=== PATIENT | female | born 1960 | race Caucasian/White ===

== ENCOUNTER 2017-07-07 10:52 | Observation (INO) | payer OTHER ==
--- NOTE | 2017-07-07 10:59 | EDPHY ---
H & P HPI/ROS: CHIEF COMPLAINT: Chest pain HISTORY OF PRESENT ILLNESS: The patient is a 56 y/o female arriving with her for evaluation of chest pain that woke her from sleep last night. She has several autoimmune diseases including lupus and dermatomyositis that cause baseline pain and fatigue and can cause difficulty for her to determine which symptoms are acute. Several years ago she had persistent chest pain that was diagnosed as pericarditis and ultimately resolved. For the last few months she' s experienced intermittent lower chest pain that she has not had evaluated. Prior to sleeping last night she developed sharp right upper arm and neck pain and dizziness that she attributed to heart burn. Through the night she developed cold profuse sweating that woke her . Later during the night she woke suddenly with acute substernal and right-sided chest pain. She took 3 aspirin and 3 ibuprofen with mild improvement. Her pain is aggravated by palpation and deep breathing. She has some associated shallow breathing today that seems worse when lying flat and notes more difficulty keeping up on her hikes in the last 2 weeks. She denies history of hypertension, hyperlipidemia, and diabetes. In the past she has taken biologics and steroids for her autoimmune disorders. She has had problems with these medications and is not interested in using them again. REVIEW OF SYSTEMS: A ten point review of systems was performed and is negative with the exception of the items mentioned in the HPI and intermittent difficulty swallowing. Past medical history: 1. Dermatomyositis 2. Lupus 3. Possible rheumatoid arthritis - previously on biologics Uses Adderall, tramadol, and NSAIDs. Recent MRI showed thickening of her pancreas. Past surgical history: Denies. Family history: Heart disease in father onset age 65 Social history: PCP at [facility]. 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 She occasionally smokes cigarettes. No alcohol or illicit drug use. 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 at bedside. General Appearance: Alert. Vital signs reviewed. 136/92. Eyes: Pupils equal and round, no conjunctival injection, no discharge. Anicteric. ENT, Mouth: Mucous membranes are moist, no oropharyngeal erythema or edema. Neck: No lymphadenopathy, supple. Respiratory: Lungs are clear to auscultation; no wheezes, rales, or rhonchi. Thorax: Mild tenderness with palpation of the lower sternum and medial right lower ribcage. No crepitus. Cardiovascular: Regular rate and rhythm; no murmur, rub, or gallop. Gastrointestinal: Abdomen is soft and nontender, no masses or organomegaly, bowel sounds normal. Skin: Warm and dry, no rashes on exposed skin, normal color. No joint deformities, warmth, swelling, or tenderness. Back: Nontender to palpation over the thoracolumbar spine. No CVAT. Extremities: No lower extremity edema, no calf tenderness or swelling. Neurological: Alert and oriented. Moving all four extremities easily and equally. Psychiatric: Normal affect. Constitutional: Initial Vital Signs Temperature (C) 37.1 C 07/07/17 11:04 Heart Rate 66 07/07/17 11:04 Respiratory Rate 18 07/07/17 11:04 Blood Pressure 136/92 H 07/07/17 11:04 O2 Sat (%) 96 07/07/17 11:04 O2 Delivery Mode Room Air Allergies/Adverse Reactions: ciprofloxacin [From Cipro] Allergy (Verified 07/07/17 11:08) Home Medications: Medication Instructions Recorded Amphet Asp and D/Amphet [Adderall 10 - 20 mg PO DAILY PRN 07/07/17 10 MG (*)] Ascorbic Acid [Vitamin C 500 mg 1,000 mg PO DAILY 07/07/17 (*)] Cholecalciferol Vit D3 [Vitamin D3 5,000 units PO DAILY 07/07/17 (*)] Herbals/Supplements -Info Only 1 ea PO DAILY 07/07/17 Ibuprofen [Motrin (*)] 200 - 1,200 mg PO DAILY PRN 07/07/17 Lefors-3 Fatty Acids [Fish Oil 1000 6,000 mg PO DAILY 07/07/17 mg (*)] traMADol [Ultram 50 mg (*)] 50 mg PO DAILY PRN 07/07/17 Medical Decision Making - Diagnostics EKG Interpretation: 12 lead EKG is interpreted in Trace master View by emergency department physician. Sinus rhythm with a rate of 67. There is slight ST depression in leads V4, V5, and V6. Imaging: I viewed and interpreted images myself ED Course/Re-evaluation: IV established. Labs drawn. Patient placed on security monitor and chest x-ray ordered. She has taken aspirin already today. The 12 lead EKG was interpreted by myself. Sinus rhythm rate [address] depression in leads V4 through V6.. See hard copy and/or "tracemaster" electronic copy for interpretation. Reassessed patient. Labs, EKG, and chest x-ray are negative for acute process. I reviewed these findings with the patient and her . She continues with some lower substernal and right lower just pain. This is likely atypical chest pain. However, she has had an episode of pericarditis in the past. I do not find evidence of pericarditis on my physical examination or on the EKG. I doubt that this is an acute coronary syndrome but there are some concerning features, including her recent shortness of breath with vigorous exercise. In this patient with lupus I think that the prudent approach is to admit her to the hospital for serial troponins and further evaluation as warranted. 1353: Spoke with hospitalist service. Dr. Montoya accepts admission. Differential Diagnosis: Chest pain including but not limited to myocardial ischemia, pericarditis, pulmonary embolus, chest wall pain, pleural inflammation and pulmonary infectious causes. - Data Points Laboratory Results: Laboratory Results 07/07/17 11:12 07/07/17 11:12 Medications Given: Melatonin (Melatonin) 4.5 - 9 mg PO HS PRN PRN Reason: Sleep/Insomnia Stop: 01/03/18 20:59 Last Admin: 07/07/17 21:33 Dose: 6 mg Tramadol HCl (Ultram) 50 mg PO DAILY PRN PRN Reason: Pain, Moderate Stop: 01/03/18 16:41 Last Admin: 07/08/17 00:30 Dose: 50 mg Departure - Departure Disposition: [facility] Acute Clinical Impression: Chest pain Qualifiers: Chest pain type: other chest pain Qualified Code(s): R07.89 - Other chest pain Lupus Qualifiers: Lupus erythematosus form: unspecified Qualified Code(s): L93.0 - Discoid lupus erythematosus Condition: Fair Report Scribed for: Nirmala Jones Report Scribed by: Odilia Engel Date of Report: 07/07/17 Time of Report: 11:49 Physician Review and Approval Statement: 07/07/17 10:59 Portions of this note were transcribed by the manager medical. I, Dr. Nirmala Jones, personally performed the history, physical exam, and medical decision- making; and confirmed the accuracy of the information in the transcribed note.
--- NOTE | 2017-07-07 11:05 | CPEKG ---
Heart Rate: 67 RR Interval: 896 P-R Interval: 152 QRSD Interval: 88 QT Interval: 408 QTC Interval: 431 P [place]: 66 QRS [place]: -21 T Wave [place]: 45 EKG Severity - OTHERWISE NORMAL ECG - EKG Impression: SINUS RHYTHM EKG Impression: BORDERLINE LEFT AXIS DEVIATION EKG Impression: Slight ST depression V4, V5, V6 Electronically Signed By: Nirmala Jones 08-Jul-2017 09:26:08
[2017-07-07 11:47] LABS: % IMMATURE GRANULYOCYTES 0.2 % (0.0-1.1); ABSOLUTE IMMATURE GRANULOCYTES 0.01 10^3/uL (0.00-0.10); ADD DIFF? NO; ADD MORPH? NO; ADD SCAN? NO; ATYPICAL LYMPHOCYTE FLAG 10 (0-99); FRAGMENT RBC FLAG 0 (0-99); HEMATOCRIT 39.2 % (38.0-47.0); HEMOGLOBIN 13.7 g/dL (12.6-16.3); LEFT SHIFT FLG 0 (0-99); LIPEMIA HEMOLYSIS FLAG 90 (0-99); MEAN CELL HEMOGLOBIN 31.9 pg (27.9-34.1); MEAN CELL HEMOGLOBIN CONCENTR. 34.9 g/dL (32.4-36.7); MEAN CELL VOLUME 91.2 fL (81.5-99.8); MEAN PLATELET VOLUME 10.7 fL (8.7-11.7); PLATELET CLUMPS FLAG 0 (0-99); PLATELET COUNT 230 10^3/uL (150-400); RED CELL DISTRIBUTION WIDTH 11.6 % (11.5-15.2)
[2017-07-07 11:52] LABS: ANION GAP 10 mEq/L (8-16); CALCIUM 9.7 mg/dL (8.5-10.4); CARBON DIOXIDE 23 mEq/l (22-31); CHLORIDE 108 mEq/L (97-110); CREATININE 0.7 mg/dL (0.6-1.0); GLOMERULAR FILTRATION RATE > 60; GLUCOSE 87 mg/dL (70-100); POTASSIUM 4.1 mEq/L (3.5-5.2); SODIUM 141 mEq/L (134-144)
[2017-07-07 12:04] LABS: TROPONIN I < 0.012 ng/mL (0.000-0.034)
[2017-07-07] MEDS ORDERED: ONDANSETRON 4 MG/2 ML VIAL IVP PRN (15:07)
[2017-07-07] MEDS ORDERED: ONDANSETRON DISINTEGRATING 4 MG TAB PO PRN (15:07)
[2017-07-07] MEDS ORDERED: ACETAMINOPHEN 325 MG TAB PO PRN (15:07)
--- NOTE | 2017-07-07 16:18 | CPEKG ---
Heart Rate: 58 RR Interval: 1034 P-R Interval: 160 QRSD Interval: 96 QT Interval: 456 QTC Interval: 448 P [place]: 53 QRS [place]: -14 T Wave [place]: 46 EKG Severity - NORMAL ECG - EKG Impression: SINUS RHYTHM Electronically Signed By: Yunior Weinstein 08-Jul-2017 17:17:28
[2017-07-07] MEDS ORDERED: ADDERALL 10 MG TAB PO PRN (16:42)
[2017-07-07] MEDS: traMADol 50 MG TAB PO PRN (17:03)
--- NOTE | 2017-07-07 17:35 | GHP ---
[f rep st] HISTORY AND PHYSICAL DATE OF ADMISSION: 07/07/2017 CHIEF COMPLAINT: Chest pressure. HISTORY OF PRESENT ILLNESS: A 56-year-old female with history of lupus, RA, dermatomyositis, presenting with chest pressure that awoke her from sleep last night. She had pressure in her left chest, squeezing in nature, and pain on her right side that was tender when she touched it. Along with this, she had sweats, nausea, shortness of breath. The pain radiated to her right arm, neck, and the middle of her back. She did not have any tingling or numbness in her limbs. She took 3 aspirin and some ibuprofen, along with some CBD oil; that improved the tender right-sided pain, but the left-sided pressure remained. She was able to doze off and awoke this morning about 6 a.m. with recurrent pain that was a little bit more dull in nature. She has had a recent sinus infection. She says she has had a cough earlier this week with some green sputum. No fevers or chills. Last night, she did notice increased belching. She hikes [employer] 4-5 days a week, does experience some shortness of breath and intermittent chest pain, but she could not quantify or qualify that chest pain. Along with that, she sometimes has nausea. She says it is difficult to discern symptoms with her underlying rheumatologic diseases. She was traveling in [place] for the past 2 days for work. She also has had difficulty swallowing this last week, which is intermittent for her. She has had some pain in her hips and arms. Patient says she had a treadmill stress over 10 years ago that was borderline, but no further evaluation. REVIEW OF SYSTEMS: I completed a 10-point review of systems, negative except as noted in HPI. PAST MEDICAL HISTORY: Lupus, dermatomyositis, rheumatoid arthritis, has previously been on steroids, Rituxan, and minocycline for these issues. PAST SURGICAL: 4 knee arthroscopic surgeries. SOCIAL HISTORY: She lives in [place] with her . 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 She is a social smoker. No alcohol or illicits. FAMILY HISTORY: Father had 4 heart attacks, at 70, 80, 84, and then later. A paternal aunt with 3 heart attacks and a stroke. A sister with atrial fibrillation. ALLERGIES: Actemra. Cipro. HOME MEDICATIONS: [place]-3 herbal supplement. Vitamin D3. Vitamin C. Ibuprofen as needed. Adderall. Tramadol. PHYSICAL EXAMINATION: VITAL SIGNS: Temperature 37.1. Blood pressure is 133/ 83. Heart rate 50s, 60s. Respirations 16. 98% on room air. GENERAL: Well- appearing female, lying in bed in no acute distress. HEENT: PERRLA. EOMI. Oropharynx clear. CV: Regular rate and rhythm. No murmurs, gallops, or rubs. No lower extremity edema. LUNGS: Clear. No crackles or wheezing. ABDOMEN: Soft, nontender, nondistended. Positive bowel sounds. : No suprapubic tenderness. MUSCULOSKELETAL: 5/5 upper and lower extremity strength. Positive synovitis over PIP joints, MCP joints, and ankles. NEURO: 2 through 12 intact. PSYCH: Alert and oriented x3 next. LABORATORIES: WBC is 5. Hemoglobin is 13. Hematocrit is 39. Platelets 230. Sodium 141, potassium 4.1, chloride 106, creatinine 0.7, glucose 87. Troponin less than 0.012. X-ray, personally reviewed by me: No opacity or effusion. EKG, personally reviewed by me: ST depression in leads 5 and 6. No olds to compare. ASSESSMENT AND PLAN: 1. Atypical chest pain: Differential includes acute coronary syndrome, pulmonary embolism,lupus flare , GERD, vs musculoskeletal. She does have risk factors including lupus and family history. There is mild ST depression, anterior leads. Troponin is negative. Add D-dimer with recent travel. Another consideration would be pericarditis, with recent upper respiratory infection. Repeat troponin, EKG. Monitor on telemetry. Order Lexiscan test for in the morning. 2. Lupus/dermatomyositis and rheumatoid arthritis: She is not on any biologics or steroids at this time. She will follow up with her PCP. 3. Shortness of breath: This may be an anginal equivalent or secondary to her underlying rheumatologic diseases. No evidence of edema. I will check a BNP. 4. Diet: Regular. 5. Deep venous thrombosis prophylaxis: Lovenox. 6. Disposition: Patient warrants observation admission given atypical chest pain, warranting serial troponin and cardiac stress test. /[id number]/MODL MTDD
[2017-07-07] MEDS ORDERED: MELATONIN 3 MG TAB PO PRN (21:00)
[2017-07-08] MEDS: traMADol 50 MG TAB PO PRN ×2 (00:30→13:26)
[2017-07-08 04:28] LABS: CHOLESTEROL 142 mg/dL (140-220); CHOLESTEROL/HDL RATIO 3.55 RATIO (1.00-4.44); HIGH DENSITY LIPOPROTEIN 40 mg/dL (40-85); LDL/HDL RATIO 2.18 RATIO (1.00-3.22); LOW DENSITY LIPOPROTEIN 87 mg/dL (80-100); NON-HIGH DENSITY LIPOPROTEIN 102 mg/dL (90-129); TRIGLYCERIDE 75 mg/dL (35-135); VERY LOW DENSITY LIPOPROTEINS 15 mg/dL (8-25)
[2017-07-08 07:56] VITALS: O2SAT 98
[2017-07-08] MEDS ORDERED: CHOLECALCIFEROL VIT D3 2,000 UNITS TAB/CAP PO SCH (09:00)
[2017-07-08] MEDS ORDERED: ASCORBIC ACID 500 MG TAB PO SCH (09:00)
[2017-07-08] MEDS ORDERED: OMEGA-3 FATTY ACIDS 1,000 MG CAP PO SCH (09:00)
[2017-07-08] MEDS ORDERED: ENOXAPARIN 40 MG/0.4 ML SYR SC SCH (09:00)
[2017-07-08] MEDS ORDERED: Herbals/Supplements -Info Only PO SCH (09:00)
--- NOTE | 2017-07-08 09:41 | ASMTCASEMG ---
Discharge Plan Comments Coordination Status Comments Notes: Reviewed chart, no case managment d/c needs identified at this time d/t patient age, lack of OT and PT therapy assessements ordered and pt being an avid hiker prior to admission. D/C plan independent with follow up as ordered by MD. Case Management available if needs change. Date Signed: 07/08/2017 09:41 AM Electronically Signed By:Porsche Grace
[2017-07-08 11:36] VITALS: BP 113/71; PULSE 72; RESP 16; TEMP 97.5
--- NOTE | 2017-07-08 16:47 | PDDCSUM ---
Discharge Summary Discharge Summary: DISCHARGE DIAGNOSES: -chest pain, resolved, uncertain etiology -ruled out for myocardial infarction HOSPITAL COURSE: This patient came to hospital complaining of chest pain which occurred in 2 episodes over the preceding couple of days. This is describes pressure in the upper chest with radiation into the shoulder and arm. There is some nausea. She ruled out for myocardial infarction, had no evidence of hemodynamic abnormalities, had no arrhythmia on cardiac monitoring. Cardiac enzymes and EKGs were normal. She was up in able to ambulate in the hallway without any symptoms instigated by that. There is no sign of infection, heart failure, pericarditis, and nothing to suggest PE. She went to [facility] stress test with myocardial perfusion imaging. This was normal in all respects with the just short of 12 mets of exercise, no specific abnormalities of vital signs, recovery time, a EKG changes, or imaging results. The patient is felt to be at very low risk of myocardial infarction or other important cardiac event. She is warned however the possibility of false negative test results and that if she does have any ongoing chest discomfort she should is seek ongoing evaluation to find a cause for this and treatment. MEDICATION CHANGES: None FOLLOW-UP PLAN: She knows to seek urgent care for any other concerning chest pain or other concerning symptoms. She does not have a primary care physician I did give her the name of several doctors in the community he may be able to help look after her ongoing autoimmune illness.
--- NOTE | 2017-07-08 18:38 | CPR ---
[f rep st] NONINVASIVE CARDIAC PROCEDURE REPORT PROCEDURE: Stress EKG INDICATION: Chest pain. DESCRIPTION OF PROCEDURE: The modified Simon protocol was used. The patient was prepared, and she ran on the treadmill for a total of 11 minute and 41 seconds. The heart rate went up to 144 beats per minute, which was 90% of the predicted max heart rate for age and gender, indicating an excellent exercise capacity. Upsloping ST change of 0.5 mm. Stanton treadmill score of 9 CONCLUSION: Normal treadmill EKG. Await myocardial perfusion results. /[id number]/MODL MTDD
--- NOTE | 2017-07-09 09:33 | ASDISCHSUM ---
Discharge Information Plan Status:Home with No Needs Medically Cleared to Leave: Discharge Date:07/08/2017 03:41 PM CM D/C Disposition: ADT D/C Disposition:Home, Routine, Self-Care Projected Discharge Date:07/08/2017 03:41 PM Transportation at D/C:Family Discharge Delay Reason: Follow-Up Date:07/08/2017 03:41 PM Discharge Slot: Final Diagnosis: Placement Information Patient Contact Information Contact Name:BECKY Relationship: Address:[address] [place] Work Phone: [place] Phone: State/Zip Code:[place] [address] Email: Financial Information Financial Class:Lucio WISHI Primary Plan Desc:LUCIO [employer]MO OPEN ACC LOCAL Primary Plan Number:[id number] Secondary Plan Desc: Secondary Plan Number: Assessment Information [facility] Initial CM Assessment Discharge Plan Comments Coordination Status Comments Notes: Reviewed chart, no case managment d/c needs identified at this time d/t patient age, lack of OT and PT therapy assessements ordered and pt being an avid hiker prior to admission. D/C plan independent with follow up as ordered by MD. Case Management available if needs change. Date Signed: 07/08/2017 09:41 AM Electronically Signed By:Porsche Grace Intervention Information
== END 2017-07-08 15:41 | disposition home or self-care (01) ==
LOC: F2W 14:55
PROVIDERS: ADMIT Internal Medicine; ATTEND Internal Medicine
DX: R07.9 Chest pain, unspecified (principal); M32.9 Systemic lupus erythematosus, unspecified; M33.92 Dermatopolymyositis, unspecified with myopathy
CPT/HCPCS: 71020; 78451; 93005; 93017; 99285; A9500; G0378; J1650

== ENCOUNTER 2017-10-14 16:19 | Inpatient (IN) | payer OTHER ==
[2017-10-14] MEDS ORDERED: HYDROmorphONE/DILAUDID 1 MG/ML INJ IVP ONE ×2 (16:30→17:28)
[2017-10-14] MEDS ORDERED: NS 1,000 ML IV ONE (16:30)
[2017-10-14] MEDS ORDERED: ceFAZolin 2 GM/DEXTROSE 100 ML IV ONE (16:39)
--- NOTE | 2017-10-14 16:39 | EDPHY ---
General - History Smoking Status: Never smoked Narrative: CHIEF COMPLAINT: Fall, elbow injury HISTORY OF PRESENT ILLNESS: Patient was walking her dog when 1 of them moved suddenly causing her to fall. She sustained injury to the left elbow. She says she heard a pop of the bone, felt a grinding sensation of the bone the elbow and sustained a laceration. Complains of some pain that radiates into the hand and left shoulder. Some tingling. No numbness. Some superficial injury to the right knee. No head strike or loss of conscious. No chest or back pain. No headache or neck pain. No abdominal pain. No pain in the right upper extremity. The pain left elbow was severe. It is constant. No improvement with rest. Significantly painful during her drive to the hospital. No other associated complaints or modifying factors. ESTABLISHED ORTHOPEDIST: None REVIEW OF SYSTEMS: Ten systems reviewed and are negative unless otherwise noted in the HPI PAST MEDICAL HISTORY: Lupus, rheumatoid arthritis, dermatomyositis PAST SURGICAL HISTORY: Remotely SOCIAL HISTORY: Occasional smoker. Occasional alcohol. 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 Pupils equal round reactive. EOMs intact. Neck: Supple nontender. No crepitus, step-off deformity. No bony tenderness. No meningismus. Cardiovascular: Symmetric radial pulses 2+. Brisk cap refill Neurological: A&O, sensation to the back of the hand, palm of the hand involving the thumb, index and middle fingers symmetric. No wrist drop on the left upper extremity. Decreased sensation in the left ring and little finger. Skin: Warm and dry, no rash. Complex laceration of the left posterior elbow, 6 cm total length in jagged. Extremities: Significant tenderness of left elbow. Range of motion not tested due to complex laceration with suspected open fracture. No tenderness of the left shoulder joint. No tenderness of the left snuffbox or hand. Psychiatric: Mood and affect normal DIFFERENTIAL DIAGNOSES: Including but not limited to compound fracture, open fracture, complex laceration, elbow fracture, sprain, strain MDM: 4:30 p.m. Mechanical fall with suspected open fracture left elbow. There is some decreased sensation to the left ring and pinky finger in the ulnar distribution. Unable to fully examine the patient this time due to pain. X-ray has been ordered. IV access being obtained. Pain medication ordered. 4:55 p.m. Case discussed with on-call orthopedist Dr. Ahumada. He will come evaluate the patient in the emergency department shortly. 5:00 p.m. Patient has been evaluated personally by Dr. Cedeño. 5:[address] Ahumada is at bedside with the patient. He has reviewed the x-rays. 5:[address] Ahumada has evaluated the patient. He requests IV gentamicin. Plans for CT scan and surgical intervention. The patient be admitted to his service in observation status. She does have some decreased sensation that persist in the left pinky and ring finger that was present at time of arrival. She is admitted in stable condition to his service. CT is pending at this time. SUPERVISION: Patient was evaluated and examined in conjunction with my secondary supervising physician as documented. We have both examined the patient. ED Precautions: Worsening pain. Erythema, edema, cyanosis, pallor, paresthesia or anesthesia. (Young Cantu) - Diagnostics Imaging Results: Patient has a CT of the left elbow which shows comminuted displaced intercondylar and supracondylar humerus fracture. (Godwin Cedeño) Discussion: I also saw the patient in the emergency department. I reviewed the history that she was walking on the [facility] property with her dog and was pulled over and tripped by her dog. She landed on her left elbow. She is right handed. She does complain of some wrist discomfort as well as left elbow injury. She has some tingling to 4th and 5th fingers of her left hand. Examination shows a large laceration over the left elbow. X-ray shows comminuted distal humerus fracture. This appears to be an open fracture. She also has altered sensation but does have movement to 4th and 5th digits of her left hand. Thumb through middle finger are normal. Plan is IV antibiotics, splint, CT, pain control, orthopedic consultation. Patient is given IV antibiotics in the emergency department. She is paced in a posterior left arm splint. Post splint application shows good anatomic position and distal motor vascular sensitivity to be intact (Godwin Cedeño) - Objective Vital Signs: Initial Vital Signs Temperature (C) 98.4 F 10/14/17 16:42 Heart Rate 73 10/14/17 16:42 Respiratory Rate 18 10/14/17 16:42 Blood Pressure 150/9 H 10/14/17 16:42 O2 Sat (%) 100 10/14/17 16:42 O2 Delivery Mode Nasal Cannula O2 (L/minute) 2 Allergies/Adverse Reactions: ciprofloxacin [From Cipro] Allergy (Verified 10/14/17 16:34) steroids Allergy (Uncoded 10/14/17 16:22) Home Medications: Medication Instructions Recorded Amphet Asp and D/Amphet [Adderall 10 mg PO DAILY PRN 07/07/17 10 MG (*)] Ascorbic Acid [Vitamin C 500 mg 2,000 mg PO DAILY 07/07/17 (*)] Cholecalciferol Vit D3 [Vitamin D3 5,000 units PO DAILY 07/07/17 (*)] Herbals/Supplements -Info Only 1 ea PO DAILY 07/07/17 [place]-3 Fatty Acids [Fish Oil 1000 6,000 mg PO DAILY 07/07/17 mg (*)] Cephalexin [Keflex (*)] 500 mg PO Q6H #28 cap 10/15/17 oxyCODONE IR [Oxycodone Ir (*)] 5 - 10 mg PO Q4HRS PRN #40 tab 10/15/17 traMADol [Ultram 50 mg (*)] 50 mg PO DAILY PRN #30 tab 10/15/17 oxyCODONE CR [Oxycontin] 10 mg PO BID #14 tab 10/16/17 Laboratory Results: Laboratory Results 10/14/17 17:50 10/14/17 17:50 Medications Given: Acetaminophen (Tylenol) 650 mg PO Q6HRS PRN PRN Reason: Headache Stop: 04/13/18 10:38 Last Admin: 10/15/17 23:55 Dose: 650 mg Cyclobenzaprine HCl (Flexeril) 10 mg PO Q6H PRN PRN Reason: MUSCLE SPASMS Stop: 04/13/18 16:14 Last Admin: 10/15/17 23:55 Dose: 10 mg Hydromorphone HCl (Dilaudid) 0.2 - 0.4 mg IVP Q1HR PRN PRN Reason: Pain, Severe Unable to Take PO Stop: 10/24/17 22:51 Last Admin: 10/16/17 10:43 Dose: 0.4 mg Cefazolin Sodium/Dextrose (Ancef 1 Gm (Premix)) 50 mls @ 200 mls/hr IV Q8H CAROL Stop: 11/14/17 15:59 Last Admin: 10/16/17 08:26 Dose: 50 mls Oxycodone HCl (Oxycontin) 10 mg PO BID CAROL Stop: 10/25/17 20:59 Last Admin: 10/16/17 09:58 Dose: 10 mg Oxycodone HCl (Oxycodone Ir) 5 - 15 mg PO Q3H PRN PRN Reason: Pain, Severe Able to Take PO Stop: 10/25/17 18:38 Last Admin: 10/16/17 13:45 Dose: 15 mg Discontinued Medications Bupivacaine HCl (Sensorcaine 0.5% Vial) Confirm Administered Dose 30 ml .ROUTE .STK-MED ONE Stop: 10/14/17 18:24 Last Admin: 10/14/17 22:30 Dose: 30 ml Fentanyl (Sublimaze) 100 mcg IVP EDNOW ONE Stop: 10/14/17 16:50 Last Admin: 10/14/17 16:50 Dose: 100 mcg Hydromorphone HCl (Dilaudid) 1 mg IVP EDNOW ONE Stop: 10/14/17 16:31 Last Admin: 10/14/17 16:38 Dose: 1 mg Hydromorphone HCl (Dilaudid) 1 mg IVP EDNOW ONE Stop: 10/14/17 17:29 Last Admin: 10/14/17 17:30 Dose: 1 mg Hydromorphone HCl (Dilaudid) 0.1 - 0.4 mg IVP Q10M PRN PRN Reason: PACU, PAIN Stop: 10/14/17 22:33 Last Admin: 10/14/17 23:34 Dose: 0.2 mg Sodium Chloride (Ns) 1,000 mls @ 0 mls/hr IV EDNOW ONE; Wide Open PRN Reason: Protocol Stop: 10/14/17 16:31 Last Admin: 10/14/17 16:40 Dose: 1,000 mls Cefazolin Sodium/Dextrose (Ancef 2 Gm (Premix)) 100 mls @ 200 mls/hr IV EDNOW ONE PRN Reason: Protocol Stop: 10/14/17 17:08 Last Admin: 10/14/17 16:51 Dose: 100 mls Cefazolin Sodium (Cefazolin Syringe) 2 gm in 20 mls @ 200 mls/hr IVP ONCALL ONE PRN Reason: Protocol Stop: 10/14/17 17:50 Last Admin: 10/15/17 03:44 Dose: Not Given Gentamicin Sulfate 400 mg/ (Dextrose) 110 mls @ 110 mls/hr IV ONCE ONE Stop: 10/14/17 18:59 Last Admin: 10/14/17 19:27 Dose: 110 mls Cefazolin Sodium/Dextrose (Ancef 2 Gm (Premix)) 100 mls @ 200 mls/hr IV Q8H CAROL PRN Reason: Protocol Stop: 10/15/17 09:29 Last Admin: 10/15/17 07:56 Dose: 100 mls Oxycodone HCl (Oxycodone Ir) 5 - 10 mg PO Q4HRS PRN PRN Reason: Pain, Severe Able to Take PO Stop: 10/24/17 22:51 Last Admin: 10/15/17 18:00 Dose: 10 mg Departure - Departure Disposition: [facility] Clinical Impression: Open fracture distal humerus, bicondylar (T-Y fracture) Qualifiers: Encounter type: initial encounter Laterality: left Qualified Code(s): S42.412B - Displaced simple supracondylar fracture without intercondylar fracture of left humerus, initial encounter for open fracture Condition: Good
[2017-10-14] MEDS ORDERED: fentaNYL 100 MCG/2 ML INJ ONE ×5 (16:47→22:21)
[2017-10-14] MEDS ORDERED: fentaNYL 100 MCG/2 ML INJ IVP ONE (16:49)
[2017-10-14] MEDS ORDERED: HYDROmorphONE/DILAUDID 1 MG/ML INJ ONE ×2 (17:29→23:08)
[2017-10-14] MEDS ORDERED: ceFAZolin 2 GM/SWFI 2 GM/20 ML SYR IVP ONE (17:45)
[2017-10-14] MEDS ORDERED: GENTAMICIN PHARMACY TO DOSE MISC SCH (17:45)
[2017-10-14] MEDS ORDERED: GENTAMICIN SULFATE 400 MG in D5W 100 ML IV ONE (18:00)
[2017-10-14 18:07] LABS: HEMATOCRIT 38.9 % (38.0-47.0); HEMOGLOBIN 13.7 g/dL (12.6-16.3); MEAN CELL HEMOGLOBIN 32.2 pg (27.9-34.1); MEAN CELL HEMOGLOBIN CONCENTR. 35.2 g/dL (32.4-36.7); MEAN CELL VOLUME 91.3 fL (81.5-99.8); RED BLOOD CELL COUNT 4.26 10^6/uL (4.18-5.33); RED CELL DISTRIBUTION WIDTH 11.6 % (11.5-15.2)
[2017-10-14 18:19] LABS: ANION GAP 11 mEq/L (8-16); CALCIUM 9.4 mg/dL (8.5-10.4); CARBON DIOXIDE 21 mEq/l (22-31); CHLORIDE 111 mEq/L (97-110); CREATININE 0.7 mg/dL (0.6-1.0); GLOMERULAR FILTRATION RATE > 60; GLUCOSE 112 mg/dL (70-100); POTASSIUM 4.1 mEq/L (3.5-5.2); SODIUM 143 mEq/L (134-144)
[2017-10-14] MEDS ORDERED: BUPIVACAINE 0.5% 30 ML SDV ONE (18:23)
[2017-10-14 18:27] LABS: APTT 25.6 SEC (23.0-38.0); INR 1.22 (0.83-1.16); PROTIME(PATIENT) 15.6 SEC (12.0-15.0)
--- NOTE | 2017-10-14 18:35 | GCON ---
[f rep st] CONSULTATION EMERGENCY ROOM CONSULT NOTE. DATE OF CONSULTATION: 10/14/2017 CHIEF COMPLAINT: Left open elbow fracture. HISTORY OF PRESENT ILLNESS: The patient was walking her dog and sustained a fall. She fell directly on the left elbow. She felt like the bone broke. She notes laceration and bleeding. She was taken to the emergency room. She denied other injuries other than the left upper extremity shoulder, wris t and elbow. She complains mostly of pain in the elbow. REVIEW OF SYSTEMS: A 10-point review of systems is negative other than above. PAST MEDICAL HISTORY: Lupus, rheumatoid arthritis, dermatomyositis. PAST SURGICAL HISTORY: Noncontributory. SOCIAL HISTORY: Occasional alcohol. Occasional smoker. FAMILY HISTORY: Noncontributory. EXAMINATION: GENERAL APPEARANCE: She is alert, oriented, in no acute distress. HEENT: Head is nor mocephalic and atraumatic. Eyes are equal and reactive. NECK: Supple. Mouth shows moist mucous me mbranes. CARDIOVASCULAR: Symmetric pulses. Regular rhythm. ABDOMEN: Soft. EXTREMITIES: Left upp er extremity: She holds her elbow in considerable pain. Palpation of her shoulders does not cause si gnificant pain. Examining her elbow there are 2 open lacerations that were bleeding significantly ab ove the elbow. She cannot move the elbow at all. Exam of the wrist there is some tenderness and she has difficulty moving the wrist due to elbow pain. She is numb in her hand, particularly in the uln ar nerve as well as radial nerve distribution. She seems to have intact sensation in the median nerv e distribution. She can flex and extend her fingers. She can abduct them weakly with 3/5 strength i n abduction and 4/5 extension, 4/5 flexion. Right upper extremity shows no abnormalities, good range of motion, 5/5 strength throughout and good pulsation and her lower extremities are atraumatic. RADIOGRAPHS: Her radiographs show severe comminuted intra-articular distal humerus fracture. ASSESSMENT: Open left distal humerus fracture, intra-articular. PLAN: Discussed her condition, treatment options. We will obtain a CT scan to further characterize the fracture. I will plan on taking her to the OR on an emergent basis given the open fracture. She was given Ancef. We will also give her gentamicin. I discussed with her that she likely has fairly severe osteoporosis given the fracture pattern, her history of steroid use and other medications to treat her rheumatoid arthritis. She also is an occasional smoker and this could likely contribute to a poor outcome as well. I discussed risks of nerve injury. I discussed risks of malunion, nonunion , class, failure of the fixation, failure of the olecranon osteotomy that would be necessary, stiffne ss, continued pain and infection. She has elected to proceed. Informed consent was obtained. I jing isabel make arrangements to the operating room. /[id number]/MODL
--- NOTE | 2017-10-14 19:11 | PDANEPAE ---
ANE History of Present Illness left humeral fracture ANE Past Medical History - Pulmonary History Hx Oxygen in Use at Home: No Hx Sleep Apnea: No - Endocrine History Hx Diabetes: No - Chronic Pain History Chronic Pain: Yes ANE Review of Systems Review of Systems: ANE Patient History - Allergies Allergies/Adverse Reactions: ciprofloxacin [From Cipro] Allergy (Verified 10/14/17 16:34) steroids Allergy (Uncoded 10/14/17 16:22) - Home Medications Home Medications: Amphet Asp and D/Amphet [Adderall 10 MG (*)] 10 mg PO DAILY PRN 07/07/17 [Last Taken 10/14/17] Ascorbic Acid [Vitamin C 500 mg (*)] 2,000 mg PO DAILY 07/07/17 [Last Taken 07/23] Cholecalciferol Vit D3 [Vitamin D3 (*)] 5,000 units PO DAILY 07/07/17 [Last Taken 10/14/17] Herbals/Supplements -Info Only 1 ea PO DAILY 07/07/17 [Last Taken 10/14/17] Ibuprofen [Motrin (*)] 200 - 1,200 mg PO DAILY PRN 07/07/17 [Last Taken 10/14/17 ] [place]-3 Fatty Acids [Fish Oil 1000 mg (*)] 6,000 mg PO DAILY 07/07/17 [Last Taken 10/14/17] traMADol [Ultram 50 mg (*)] 50 mg PO DAILY PRN 07/07/17 [Last Taken Unknown] - NPO status NPO Since - Liquids (Date): 10/14/17 NPO Since - Liquids (Time): 16:00 NPO Since - Solids (Date): 10/14/17 NPO Since - Solids (Time): 14:00 - Smoking Hx Smoking Status: Never smoked ANE Labs/Vital Signs - Labs Result Diagrams: 10/14/17 17:50 10/14/17 17:50 - Vital Signs Blood Pressure: 132/68 Heart Rate: 75 Respiratory Rate: 18 O2 Sat (%): 97 Height: 172.72 cm Weight: 72.575 kg ANE Physical Exam - Airway Neck exam: FROM Mallampati Score: Class 2 Mouth exam: normal dental/mouth exam - Pulmonary Pulmonary: no respiratory distress - Cardiovascular Cardiovascular: regular rate and rhythym - ASA Status ASA Status: II, E ANE Anesthesia Plan Anesthesia Plan: general endotracheal anesthesia
[2017-10-14] MEDS ORDERED: PROPOFOL 200 MG/20 ML VIAL ONE (19:14)
[2017-10-14] MEDS ORDERED: HYDROmorphONE/DILAUDID 2 MG/ML INJ ONE (19:14)
[2017-10-14] MEDS ORDERED: ROCURONIUM 50 MG/5 ML VIAL ONE (19:14)
[2017-10-14] MEDS ORDERED: ONDANSETRON 4 MG/2 ML VIAL ONE (19:14)
[2017-10-14] MEDS ORDERED: MEPERIDINE 25 MG/ML SYR IVP PRN (21:32)
[2017-10-14] MEDS ORDERED: NALOXONE HCL 0.4 MG/ML INJ IVP PRN (21:32)
[2017-10-14] MEDS ORDERED: HYDROCODONE/APAP 5/325 TAB PO PRN (21:32)
[2017-10-14] MEDS ORDERED: PROMETHAZINE HCL 25 MG/ML INJ IVP PRN (21:32)
[2017-10-14] MEDS ORDERED: ONDANSETRON 4 MG/2 ML VIAL IVP PRN ×2 (21:32→22:52)
--- NOTE | 2017-10-14 22:47 | POSTOPPROG ---
Post Op Note Date of Operation: 10/14/17 Surgeon: Renard Ahumada Weight Count Operator: none Anesthesia: GET(General Endotracheal) Pre-op Diagnosis: L open distal humerus fx Post-op Diagnosis: same Indication: above Procedure: I and D and orif L open distal humerus fx Inf/Abcess present in the surg proc area at time of surgery?: No EBL: 50-100
--- NOTE | 2017-10-14 22:51 | POSTANESTH ---
Post Anesthetic Evaluation Cardiovascular Status: Normal, Stable Respiratory Status: Normal, Stable Level of Consciousness/Mental Status: Can Participate in Eval Pain Control: Adequate, Prn Tx Ordered Nausea/Vomiting Control: Adequate, Prn Tx Ordered Complications Possibly Related to Anesthesia: None Noted
[2017-10-14] MEDS: HYDROmorphONE/DILAUDID 1 MG/ML INJ IVP PRN ×2 (23:09→23:34)
[2017-10-15] MEDS: HYDROmorphONE/DILAUDID 1 MG/ML INJ IVP PRN ×13 (00:26→23:56)
[2017-10-15] MEDS: oxyCODONE IR 5 MG TAB PO PRN ×7 (00:27→23:55)
--- NOTE | 2017-10-15 00:56 | GOP ---
[f rep st] OPERATIVE REPORT DATE OF OPERATION: 10/14/2017 SURGEON: Renard Ahumada MD SYRUP MIXER HELPER: None PREOPERATIVE DIAGNOSIS: Left grade 3 open distal humerus fracture. POSTOPERATIVE DIAGNOSIS: Left grade 3 open distal humerus fracture. PROCEDURE PERFORMED: 1. Irrigation and debridement left grade 3 open distal humerus fracture. 2. Open reduction, internal fixation complex comminuted multi part intra- articular distal humerus fracture and olecranon osteotomy with repair of olecranon osteotomy. FINDINGS: SPECIMENS: None. ESTIMATED BLOOD LOSS: 50 mL. INDICATIONS: This is a 57-year-old female who fell walking her dog and fell on this elbow. Sustained this complex comminuted articular fracture which was open. I saw her emergently in the ED and discussed immediate surgery for the open fracture with her. Discussed risks of nerve injury, particularly the ulnar and radial nerve which were already showing paresthesias, infection given the open fracture, need for urgent surgery, nerve injury, vascular complications , nonunion, malunion, hardware irritation, need for removal of hardware, stiffness. She elected to proceed. Informed consent was obtained. All questions were answered. She was marked preoperatively. DESCRIPTION OF PROCEDURE: She was taken to the operative suite. Her arm was cleaned off. She was still oozing out of the open fracture site. Had been given Ancef in the ER. She was given gentamicin preoperatively for open fracture prophylaxis for preop antibiotics. She also redosed with ancef during surgery. Sterilely prepped and draped in normal fashion. Time-out was performed verifying site, side, location, and there was agreement with the team. I made an incision over the posterior portion of the humerus and elbow curving around the olecranon. I dissected down and I saw the triceps. There was no obvious rent in the triceps or the bone that could communicate to the skin. I thoroughly irrigated and debrided this area. I isolated the ulnar nerve and freed this proximally and distally and placed a vessel loop around this to protect this throughout the case. I mobilized tissue. I performed olecranon osteotomy 1st with sagittal saw and then an osteotome and I retracted this and elevated the humerus off the triceps. This exposed the significantly comminuted complex intra-articular distal humerus fracture. There were small pieces including one intra-articular piece with no soft-tissue attachments had to be removed. However, with the main medial fragment was able to reduce this anatomically at the shaft given the cortical leads. I pinned this and then placed a plate on this with distal and proximal screws. I was also able to then reduce the trochlear piece to this and held this with a screw. Then reduced the capitellar piece directly and I held this with a pin and placed the posterior lateral plate on top of this and with screws held this in place provisionally. I checked the x-rays and liked my articular reduction as well as my cortical reduction. I then placed a screw from medial across both bones at the joint for home run type screw. This was a locking screw. I placed locking screws distally and cortical screws proximally in both plates achieving solid stable construct. I achieved full range of motion by testing with pronation, supination, extension, and flexion to at least 120 degrees. The small void was filled with a cc of DBX bone graft. This was more at the shaft area. Irrigated this further. I reduced the olecranon osteotomy, repaired the olecranon plate with locking and nonlocking screws. Checked this fluoroscopically and took her through range of motion. I felt this was adequate and stable in a full range of motion. Tourniquet was released. She was thoroughly irrigated. Closed with #1 Vicryl, 0 Vicryl, 2-0 Vicryl, 3-0 Quill, and Dermabond and the open traumatic wound was closed 0 nylon. She was placed in sterile dressing and splint, taken to PACU in stable condition. IMPLANTS: Synthes medial, lateral humerus plates and olecranon plate. COMPLICATIONS: None. DRAINS: None. CONDITION: Stable. /[id number]/MODL MTDD
[2017-10-15] MEDS: ceFAZolin 2 GM/DEXTROSE 100 ML IV SCH ×2 (01:51→07:56)
--- NOTE | 2017-10-15 09:23 | SOAPPROG ---
SOMARY Progress Note Assessment/Plan: Assessment: L open distal humerus fx Plan: s/p I and D and orif KEITH SALEH d/c home when pain controlled 10/15/17 09:20 Subjective: pain in left elbow Objective: Vital Signs Temp Pulse Resp BP Pulse Ox 37.2 C 84 16 121/68 H 96 10/15/17 07:37 10/15/17 07:37 10/15/17 07:37 10/15/17 07:37 10/15/17 07:37 Laboratory Results 10/14/17 17:50 10/14/17 17:50 10/14/17 10/15/17 10/16/17 05:59 05:59 05:59 Intake Total 2100 Output Total 100 Balance 2000 PT 15.6 SEC (12.0-15.0) H 10/14/17 17:50 INR 1.22 (0.83-1.16) H 10/14/17 17:50 left elbow in splint some drainage on splint numbness in ulnar and radial distribution 4/5 strength in m/r/u ICD10 Worksheet Patient Problems: Problems Problem Status Onset Open fracture distal humerus, bicondylar (T-Y fracture) Acute Chest pain Acute Lupus Acute
[2017-10-15] MEDS: ACETAMINOPHEN 325 MG TAB PO PRN ×3 (11:00→23:55)
[2017-10-15] MEDS: CYCLOBENZAPRINE 10 MG TAB PO PRN ×2 (16:31→23:55)
[2017-10-15] MEDS ORDERED: diphenhydrAMINE 25 MG CAP PO PRN (21:30)
[2017-10-16] MEDS: oxyCODONE IR 5 MG TAB PO PRN ×5 (03:08→16:49)
[2017-10-16] MEDS: HYDROmorphONE/DILAUDID 1 MG/ML INJ IVP PRN ×2 (05:29→10:43)
--- NOTE | 2017-10-16 12:11 | ASMTCMCOM ---
CM Note CM Note Notes: Patient is POD #2 I&D and ORIF of L open distal humerus fracture. She is recovering well and will discharge independently with her when her pain is controlled. Date Signed: 10/16/2017 12:11 PM Electronically Signed By:Keena Meyer RN
--- NOTE | 2017-10-16 13:02 | SOAPPROG ---
SOAP Progress Note Assessment/Plan: Assessment: L open distal humerus fx Plan: s/p I and D and orif KEITH SALEH d/c home when pain controlled, doing better today with pain 10/15/17 09:20 10/16/17 13:02 Subjective: pain somewhat improved with oxycontin Objective: Vital Signs Temp Pulse Resp BP Pulse Ox 37.1 C 86 16 129/82 H 94 10/16/17 11:52 10/16/17 11:52 10/16/17 11:52 10/16/17 11:52 10/16/17 11:52 10/15/17 10/16/17 10/17/17 05:59 05:59 05:59 Intake Total 800 250 Balance 800 250 PT 15.6 SEC (12.0-15.0) H 10/14/17 17:50 INR 1.22 (0.83-1.16) H 10/14/17 17:50 moving fingers well flex/ext/abduction good cap refill ICD10 Worksheet Patient Problems: Problems Problem Status Onset Open fracture distal humerus, bicondylar (T-Y fracture) Acute Chest pain Acute Lupus Acute
[2017-10-16 16:19] VITALS: BP 111/82; PULSE 87; RESP 18; TEMP 98.6; O2SAT 96
[2017-10-16] MEDS: ACETAMINOPHEN 325 MG TAB PO PRN (16:29)
--- NOTE | 2017-10-17 09:18 | ASDISCHSUM ---
Discharge Information Plan Status:Home with No Needs Medically Cleared to Leave: Discharge Date:10/16/2017 06:55 PM CM D/C Disposition:Home, Routine, Self-Care ADT D/C Disposition:Home, Routine, Self-Care Projected Discharge Date:10/16/2017 06:55 PM Transportation at D/C:Family Discharge Delay Reason: Follow-Up Date:10/16/2017 06:55 PM Discharge Slot: Final Diagnosis: Placement Information Patient Contact Information Contact Name:BECKY Relationship: Address:[address] [place] Work Phone: [place] [facility] Phone: [facility]/Zip Code:[place] [address] Email: Financial Information Financial Class:[facility] Primary Plan Desc:[employer] OPEN ACC LOCAL Primary Plan Number:[id number] Secondary Plan Desc: Secondary Plan Number: Assessment Information [facility] CM Progress Note CM Note CM Note Notes: Patient is POD #2 I&D and ORIF of L open distal humerus fracture. She is recovering well and will discharge independently with her when her pain is controlled. Date Signed: 10/16/2017 12:11 PM Electronically Signed By:Keena Meyer RN Intervention Information
--- NOTE | 2017-10-17 18:22 | GDS ---
[f rep st] DISCHARGE SUMMARY DIAGNOSIS: Open left distal humerus fracture. HOSPITAL COURSE: She was taken to surgery from the ER for left open distal humerus fracture, perform ed I and D and ORIF. She was admitted to the hospital. She received IV antibiotics for open fractur e treatment and was able to progress with pain to physical therapy. Two days later, she met criteria for discharge. CONSULTING PHYSICIANS: None. PROCEDURES: ORIF and I and D of left open distal humerus fracture. DISPOSITION: She was sent home on a regular diet. She was sent home nonweightbearing to the left up per extremity. She was sent home in a splint. She will change the dressing p.r.n. She was restarte d on her previous home medications. She was given oxycodone and OxyContin for pain, as well as ice a nd elevate. She will call or come back to the hospital if she has chest pain, shortness of breath, f ever, or other problems. She will follow up with me in clinic. An appointment has been made for her already in 1 week. /[id number]/MODL
== END 2017-10-16 18:55 | disposition home or self-care (01) | DRG 494 ==
LOC: F3N 23:45 → OBSVTOIN 10-15 15:49
PROVIDERS: ADMIT Orthopaedic Surgery; ATTEND Orthopaedic Surgery
PROC: 0PSG04Z Reposition Left Humeral Shaft with Internal Fixation Device, Open Approach (ICD-10-PCS; principal; 2017-10-14 18:30)
PROC: 0P8 Upper Bones, Division (ICD-10-PCS; principal; 2017-10-14 18:30)
DX: S42.422B Displaced comminuted supracondylar fracture without intercondylar fracture of left humerus, initial encounter for open fracture (principal); S51.012A Laceration without foreign body of left elbow, initial encounter; W01.10XA Fall on same level from slipping, tripping and stumbling with subsequent striking against unspecified object, initial encounter; Y92.214 College as the place of occurrence of the external cause; Y93.K1 Activity, walking an animal; M81.0 Age-related osteoporosis without current pathological fracture; L93.0 Discoid lupus erythematosus; M06.9 Rheumatoid arthritis, unspecified; F17.210 Nicotine dependence, cigarettes, uncomplicated; Z87.2 Personal history of diseases of the skin and subcutaneous tissue; Z79.52 Long term (current) use of systemic steroids
CPT/HCPCS: 96365; 97110-GO; 97116-GP; 97161-GP; 97166-GO; 97530-GP; 97535-GO; C1713; C1769; J0690; J1170; J2405; J2704; J3010

== ENCOUNTER 2017-10-22 17:34 | Emergency (ER) | payer OTHER ==
[2017-10-22 17:41] VITALS: RESP 18
--- NOTE | 2017-10-22 18:01 | EDPHY ---
H & P Time Seen by Provider: 10/22/17 17:43 HPI/ROS: CHIEF COMPLAINT: left arm swelling and pain HISTORY OF PRESENT ILLNESS: The patient is a 57 y/o female with left arm swelling and pain. s/p open humerus fracture and ORIF after tripping over her dogs on 10/14/17, 8 days ago. Since the procedure, she has been having consistent pain along the medial aspect of her forearm arm. Taking oxycodone with relief. Pain gradually lessening since the procedure until this morning. Last night she noted that her palm had a purple color and her hand became very warm. She also noticed an increase in swelling in her left hand. This afternoon she developed pressure around her elbow. At 16:00, 2 hours ago, she took her pain medication without much pain relief. Called PCP, concern for possible infection, told to come to the ED. She has a follow up appointment with Dr. Ahumada, orthopedic surgeon, tomorrow. Denies chest pain, shortness of breath, fever or other pertinent symptoms. REVIEW OF SYSTEMS: Aside from elements discussed in the HPI, a comprehensive 10-point review of systems was reviewed and is negative. Past Medical/Surgical History: Left humerus ORIF 10/17/17, lupus, rheumatoid arthritis, dermatomyositis Social History: at bedside, lives in [place] Smoking Status: Never smoked Physical Exam: General Appearance: Alert, pleasant Eyes: Pupils equal and round, no conjunctival pallor ENT, Mouth: Mucous membranes moist Neck: Normal inspection Respiratory: Lungs are clear to auscultation Cardiovascular: Regular rate and rhythm Gastrointestinal: Abdomen is soft and non-tender Neurological: A&O, nonfocal Skin: Warm and dry, no rash Extremities: Left Arm: Posterior Orthoglass splint in place, ecchymosis on palm , swelling of dorsal aspect of hand, mild increased warmth, no erythema, cap refill brisk. Upon splint removal: Surgical incision is well healing and intact, no erythema, warmth, or drainage. No erythema or tenderness of upper arm or over the musculature of the forearm. Moves all digits well. 2+ radial pulse Psychiatric: Mood and affect normal Constitutional: Initial Vital Signs Temperature (C) 37.6 C 10/22/17 17:35 Heart Rate 78 10/22/17 17:35 Respiratory Rate 18 10/22/17 17:35 Blood Pressure 144/83 H 10/22/17 17:35 O2 Sat (%) 97 10/22/17 17:35 O2 Delivery Mode Room Air Allergies/Adverse Reactions: ciprofloxacin [From Cipro] Allergy (Verified 10/22/17 17:38) steroids Allergy (Uncoded 10/14/17 16:22) Home Medications: Medication Instructions Recorded Amphet Asp and D/Amphet [Adderall 10 mg PO DAILY PRN 07/07/17 10 MG (*)] Ascorbic Acid [Vitamin C 500 mg 2,000 mg PO DAILY 07/07/17 (*)] Cholecalciferol Vit D3 [Vitamin D3 5,000 units PO DAILY 07/07/17 (*)] Herbals/Supplements -Info Only 1 ea PO DAILY 07/07/17 [place]-3 Fatty Acids [Fish Oil 1000 6,000 mg PO DAILY 07/07/17 mg (*)] Cephalexin [Keflex (*)] 500 mg PO Q6H #28 cap 10/15/17 oxyCODONE IR [Oxycodone Ir (*)] 5 - 10 mg PO Q4HRS PRN #40 tab 10/15/17 traMADol [Ultram 50 mg (*)] 50 mg PO DAILY PRN #30 tab 10/15/17 oxyCODONE CR [Oxycontin] 10 mg PO BID #14 tab 10/16/17 Medical Decision Making - Diagnostics Imaging Results: UE sono: no DVT Imaging: Discussed imaging studies w/ call center support consultant Radiologist Procedures: Procedure: Splint placement An orthoglass long arm posterior splint was applied by the medical technologist. Alignment was adequate and the patient was comfortable and neurovascularly intact after application. ED Course/Re-evaluation: The patient is a 57 y/o female who had an open humerus fracture and an ORIF on 10/14/17, 8 days ago. Swelling and ecchymosis on hand and distal forearm on initial exam. Will remove splint to evaluate the surgical wound. 1800: Removed the splint. The patient is feeling better after splint removal. Upon further examination, the surgical incision is well healing. There is no evidence of cellulitis or compartment syndrome. 180: Consulted with Dr. Hyatt, the patient's PCP regarding the patient's symptoms. 1830: Reassessed patient, she continues to feel better with the splint off. Plan on US to rule out DVT. 1920: Spoke with Dr. Toscano, radiologist, patient's US is negative for a DVT. 1999: Reassessed patient and discussed imaging findings. She will have her splint placed again. Sx most likely secondary to tight splint. Return precautions provided; patient and her are comfortable with this plan. Differential Diagnosis: Differential diagnosis includes though it is not limited to cellulitis, osteomyelitis, DVT, compartment syndrome, neurovascular compromise. - Data Points Medications Given: Discontinued Medications Oxycodone/Acetaminophen (Percocet 5/325mg Prepack#4) 1 btl TAKEHOME EDNOW ONE Stop: 10/22/17 18:09 Last Admin: 10/22/17 20:48 Dose: 1 btl Departure - Departure Disposition: Home, Routine, Self-Care Clinical Impression: Post-operative pain Condition: Good Instructions: Oxycodone/Acetaminophen (By mouth), ORIF of an Arm Fracture (DC) Additional Instructions: Take Percocet as instructed. Wear splint at all times until reevaluation. Keep your arm elevated whenever possible. Keep your appointment with Dr. Ahumada, orthopedic surgeon, tomorrow. Return to the emergency department for worsening pain, swelling, numbness, weakness or other concerns. Referrals: MAAME HYATT MD [Primary Care Provider] - As per Instructions Renard Ahumada MD [Medical Doctor] - As per Instructions (Keep your appointment tomorrow.) Report Scribed for: Deepika Sousa Report Scribed by: Verna Ferrell Date of Report: 10/22/17 Time of Report: 17:50 Physician Review and Approval Statement: 10/22/17 17:50 Portions of this note were transcribed by a medical billing specialist. I personally performed a history, physical exam, medical decision making, and confirmed accuracy of information the transcribed note.
[2017-10-22] MEDS ORDERED: OXYCODONE/APAP 5/325MG PREPACK#4 BTL TAKEHOME ONE ×2 (18:08→20:44)
[2017-10-22 21:03] VITALS: BP 155/94; PULSE 72; TEMP 98.2; O2SAT 96
== END 2017-10-22 21:03 | disposition home or self-care (01) ==
DX: G89.18 Other acute postprocedural pain (principal)